=== PATIENT | male | born 1955 | race Caucasian/White ===

== ENCOUNTER 2018-11-15 11:57 | Inpatient (IN) | payer OTHER ==
[2018-11-15 13:08] LABS: #Lymphocytes 0.7 thou/uL (1.20-3.40); #Monocytes 0.3 thou/uL (0.11-0.59); #Neutrophils 11.1 thou/uL (1.40-6.50); %Basophils 0.1 % (0.0-1.0); %Eosinophils 0.3 % (0.0-10.0); %Lymphocytes 5.4 % (21.0-51.0); %Monocytes 2.4 % (0.0-10.0); %Neutrophils 91.9 % (42.0-75.0); Hemoglobin 18.4 g/dL (14.0-18.0); Mean Corpuscular HGB CONC 33.4 g/dL (32.0-36.0); Mean Corpuscular Hemoglobin 33.5 pg (27.0-31.0); Mean Platelet Volume 7.1 fL (7.4-10.4); Platelet Count 320 thou/uL (130-400); RBC Distribution Width 12.1 % (11.5-14.5); Red Blood Cell (RBC) Count 5.47 mill/uL (4.70-6.10); White Blood Cell (WBC) Count 12.1 thou/uL (4.8-10.8)
[2018-11-15] MEDS ORDERED: Ondansetron ODT 4 MG TAB ONE (13:21)
[2018-11-15 13:34] LABS: ALT (SGPT) 51 U/L (8-55); AST (SGOT) 41 U/L (5-34); Albumin 4.4 g/dL (3.4-4.8); Alkaline Phosphatase 42 U/L (40-150); Anion Gap 22 mmol/L (10-20); BUN (Urea Nitrogen) 23 mg/dL (8.4-25.7); Bilirubin, Total 0.8 mg/dL (0.2-1.2); CK (CPK) 106 U/L (30-200); Calc. Creatinine Clearance 0 mL/min (70-130); Calcium 10.1 mg/dL (7.8-10.44); Carbon Dioxide 15 mmol/L (23-31); Chloride 104 mmol/L (98-107); Estimated GFR-MDRD 62; Globulin 3.8 g/dL (2.4-3.5); Glucose 236 mg/dL (80-115); Lipase 151 U/L (8-78); Potassium 4.6 mmol/L (3.5-5.1); Protein, Total 8.2 g/dL (5.8-8.1); Sodium 136 mmol/L (136-145)
[2018-11-15] MEDS ORDERED: Acetaminophen 500 MG TAB ONE (14:15)
[2018-11-15] MEDS ORDERED: Meclizine HCl 25 MG TAB ONE (14:16)
--- NOTE | 2018-11-15 14:37 | RAD ---
PORTABLE CHEST 1 VIEW: Date: 11/15/18 Time: 1318 hours HISTORY: Chest pain. FINDINGS: There is elevation of the right hemidiaphragm. The heart size is normal. No focal areas of consolidat ion, pneumothoraces, or pleural effusions are seen. IMPRESSION: No radiographic evidence of acute cardiopulmonary process. POS: [facility]
[2018-11-15] MEDS ORDERED: Ondansetron PF 4 MG/2 ML Vial ONE (16:49)
--- NOTE | 2018-11-15 19:33 | PDOC.FPRHP ---
- History of Present Illness Chief Complaint: feeling bad History of Present Illness: 63 yo M with HTN and DM2 comes to ED for "feeling bad." Around 7 am was feeling dizzy with facial congestion.Then had 2 diarrheal episodes and 3 emesis episodes. Dizzy described as lightheaded with no room spinning. No Hx of vertigo. Pt is DM2 so checked his blood sugar at that time which was in 150s, usually in 130s. Unable to check BP since cuff wasn't working. In regards to diarrhea and emesis- no blood. No recent travel, weird foods or recent sick contacts. Got flu shot this year. Denies chest pain, SOB, headache, acute vision changes or focal weakness. In the ED pt has SBP >200s. He has been taking lisinopril and amlodipine daily for his BP. Was given 15mg of labetalol total with BPs still remaining above > 190s. Was started on a nicardepine drip to better control. ED Course: 10 labetalol - Allergies/Adverse Reactions Allergies Allergy/AdvReac Type Severity Reaction Status Date / Time tetracaine Allergy Verified 11/16/18 00:23 Tetracyclines Allergy Verified 11/16/18 00:23 - Home Medications Medication Instructions Recorded Confirmed Type Amlodipine [Norvasc] 5 mg PO DAILY 11/16/18 11/16/18 History Atorvastatin Calcium [Lipitor] 10 mg PO DAILY 11/16/18 11/16/18 History Dapagliflozin Propanediol [Farxiga] 10 mg PO DAILY 11/16/18 11/16/[address] [Voltaren] 50 mg PO BID 11/16/18 11/16/18 History Fluticasone Propionate [Flonase 1 spray EA NARE DAILY 11/16/18 11/16/18 History Nasal [place]] Folic Acid 1 mg PO DAILY 11/16/18 11/16/18 History Glimepiride [Amaryl] 8 mg PO DAILY 11/16/18 11/16/18 History Lisinopril 10 mg PO DAILY 11/16/18 11/16/18 History Testosterone Cypionate 200 mg IM Q14D 11/16/18 11/16/18 History [Depo-Testosterone] metFORMIN [Glucophage] 1,000 mg PO BID-WM 11/16/18 11/16/18 History - History PMHx: Htn, DM2, hx of squamous cell CA of tongue, psoriasis PSHx: Appenectomy, lymphadnectomy of neck for SCC, R shoulder surgery for impingement FHx: dementia, parkinsons Social: denies, t/e/d - Review of Systems General: denies: fever/chills, weight/appetite/sleep changes Eyes: denies: eye pain, vision changes ENT: denies: nasal congestion, rhinorrhea Respiratory: denies: cough, congestion, shortness of breath Cardiovascular: denies: chest pain, palpitation, edema Gastrointestinal: reports: nausea, vomiting, diarrhea. denies: abdominal pain, GI bleeding Genitourinary: denies: incontinence, dysuria Skin: denies: rashes, lesions, jaundice Musculoskeletal: denies: pain, tenderness, stiffness Neurological: denies: syncope, seizure Psychological: denies: anxiety, depression - Vital signs BP: [] HR: [] RR: [] Tmax: [] Pox: []% on [] Wt: [] - Physical Exam Constitutional: NAD, awake, alert and oriented, well developed HEENT: normocephalic and atraumatic, PERRLA, EOMI, conjunctiva clear -HEENT: tongue deviation to right (normal per patient s/p surgical removal of CA) dry mucosal membranes Neck: supple, FROM, trachea midline -Neck: right neck slightly swollen Heart: RRR, normal S1/S2, no murmurs/rubs/gallops Lungs: CTAB, no respiratory distress, good air movement Abdomen: soft, non-tender, bowel sounds present, no masses/distention Musculoskeletal: normal structure, normal tone, ROM grossly normal Neurological: no focal deficit, CN II-XII intact, normal sensation Skin: no rash/lesions, good turgor Heme/Lymphatic: no unusual bruising or bleeding, no purpura Psychiatric: normal mood and affect, good judgment and insight Additional comment: corinna ceballos: negative FMR H&P: Results - Labs Result Diagrams: 11/16/18 04:29 11/16/18 04:28 Lab results: WBC 12.1 thou/uL (4.8-10.8) H 11/15/18 12:58 Hgb 18.4 g/dL (14.0-18.0) H 11/15/18 12:58 Hct 55.0 % (42.0-52.0) H 11/15/18 12:58 MCV 100.0 fL (78.0-98.0) H 11/15/18 12:58 Plt Count 320 thou/uL (130-400) 11/15/18 12:58 Neutrophils % 91.9 % (42.0-75.0) H 11/15/18 12:58 Sodium 136 mmol/L (136-145) 11/15/18 12:58 Potassium 4.6 mmol/L (3.5-5.1) 11/15/18 12:58 Chloride 104 mmol/L (98-107) 11/15/18 12:58 Carbon Dioxide 15 mmol/L (23-31) L 11/15/18 12:58 BUN 23 mg/dL (8.4-25.7) 11/15/18 12:58 Creatinine 1.19 mg/dL (0.7-1.3) 11/15/18 12:58 Glucose 236 mg/dL (80-115) H 11/15/18 12:58 Calcium 10.1 mg/dL (7.8-10.44) 11/15/18 12:58 Total Bilirubin 0.8 mg/dL (0.2-1.2) 11/15/18 12:58 AST 41 U/L (5-34) H 11/15/18 12:58 ALT 51 U/L (8-55) 11/15/18 12:58 Alkaline Phosphatase 42 U/L (40-150) 11/15/18 12:58 Creatine Kinase 106 U/L (30-200) 11/15/18 12:58 B-Natriuretic Peptide 11.0 pg/mL (0-100) 11/15/18 12:58 Serum Total Protein 8.2 g/dL (5.8-8.1) H 11/15/18 12:58 Albumin 4.4 g/dL (3.4-4.8) 11/15/18 12:58 Lipase 151 U/L (8-78) H 11/15/18 12:58 - EKG Interpretation EKG: sinus tachycardia, LVH, possible left atrial enlargement - Radiology Interpretation Chest x-ray Status: image reviewed by me, report reviewed by me Additional comment: no acute cardiopulmonary processes FMR H&P: A/P - Problem List (1) Hypertensive encephalopathy Current Visit: Yes Status: Acute Code(s): I67.4 - HYPERTENSIVE ENCEPHALOPATHY (2) High anion gap metabolic acidosis Current Visit: Yes Status: Acute Code(s): E87.2 - ACIDOSIS (3) Dehydration Current Visit: Yes Status: Acute Code(s): E86.0 - DEHYDRATION (4) Chronic hypertension Current Visit: Yes Status: Chronic Code(s): I10 - ESSENTIAL (PRIMARY) HYPERTENSION (5) Diabetes type 2, uncontrolled Current Visit: Yes Status: Chronic Code(s): E11.65 - TYPE 2 DIABETES MELLITUS WITH HYPERGLYCEMIA (6) Squamous cell cancer of buccal mucosa Current Visit: Yes Status: Chronic Code(s): C06.0 - MALIGNANT NEOPLASM OF CHEEK MUCOSA (7) Psoriasis Current Visit: Yes Status: Chronic Code(s): L40.9 - PSORIASIS, UNSPECIFIED - Plan 63 yo M with DM2 and HTN admitted for hypertensive encephalopathy Hypertensive urgency -BP >200/>100s, s/p 15mg labetalol in ED -labs show no signs of end organ damage: trops neg. x3, normal BNP, A&O x3 -however due to nausea/emesis can consider HTN encephalopathy as part of dx. However, nausea/emesis could also be 2/2 to GE -EKG with LVH, it's likely that pt patient's acute presentation is a manifestation of chronic uncontrolled HTN. Hemorrhagic/ischemic stroke less likely in setting of normal neuro exam. -on nicardepine drip at 3mcg/hr, admit to CCU for goal SBP <160 -work to eventual transition of PO meds once BPs stable chronic HTN -home amlodipine & lisinopril, resume po meds once off nicardepine drip & BPs stable -may need inc in home amlodipine dose AG met acidosis -likely 2/2 volume depletion, clinically dry on exam -lactic acid pending -fluids, repeat BMP in AM Dizziness -corinna hallpike neg -dizziness likely 2/2 to elevated BPs -meclizine PRN Dehydration, mild -Tachycardic, s/p 1L in ED -will give 1L bolus, start on mIVF -likely 2/2 dec po intake and emesis -AM BMP Diarrhea/emesis -possible gastroenteritis -will rehydrate -if no improvement, consider stool studies Elevated H/H, Leukocytosis -likely hemoconcentrated -no bands, afebrile -will check procal -AM CBC after fluids ROXANA vs CKD -gfr 62, Cr 1.19-no hx of baseline -will continue fluids -AM BMP -hold home metformin for now DM2 -A1c 8.3 -sliding scale Squamous cell CA of tongue s/p surgery -MD aware Psoriasis -contine home meds dvt ppx: lovenox gi ppx: protonix Discussed with Dr. Trinidad FMR H&P: Upper Level - Pertinent history 63 y/o M with HTN, DM presenting with dizziness/vomiting. Started this AM and pt describes sx as not feeling well and lightheaded. Worse with brisk head movements. Has not seen PCP in several months nor has he taken his BP at home. Vomited and diarrhea x3 today and not tolerating PO well. Does state BG has been higher than it usually is. Also endorses LBP for a year that has worsened recently. States he has been "popping" Tylenol. - Plan Date/Time: 11/15/18 193 I, Wellington Cullen, have evaluated this patient and agree with findings/plan as outlined by international project manager resident. Pertinent changes/additions are listed here. # Hypertensive Emergency -232 SBP upon presentation and now has improved to 190' s with Labetalol, but 2nd dose did not help. Will start Cardene drip. # Gastroenteritis - Unsure of why he started vomiting and had diarrhea today. Will rehydrate him and monitor symptoms. Consider stool studies of no improvement. Abdominal exam benign. # AG Metabolic Acidosis - Likely 2/2 diarrhea, but possibly elevated ketoacids vs Acetaminophen ingestion. Order b-hydroxy. # DMT2 - SSI, regular accuchecks # Elevated Lipase - Likely 2/2 hypovolemia. Will trend. Abdominal exam benign. Addendum - Attending - Attending Attestation Date/Time: 11/16/18 8023 I personally evaluated the patient and discussed the management with Dr. Ragland at time of admission last night. I agree with the History, Examination, Assessment and Plan documented above with any addition or exceptions noted below.
[2018-11-15 22:07] LABS: Hemoglobin A1c 8.3 % (4.0-6.0)
[2018-11-15] MEDS ORDERED: niCARdipine 20MG In NaCl 20 MG/200 ML BAG ONE (22:24)
[2018-11-16] MEDS ORDERED: Dextrose 5% in Water 1,000 ML IV PRN (00:22)
[2018-11-16] MEDS ORDERED: Ondansetron ODT 4 MG TAB PO PRN (00:22)
[2018-11-16] MEDS ORDERED: Dextrose 50% Abboject 50 ML SYRINGE SLOW IVP PRN (00:22)
[2018-11-16] MEDS ORDERED: Lactated Ringer's 1,000 ML IV SCH (00:22)
[2018-11-16] MEDS: Lactated Ringer's 1,000 ML IV SCH ×4 (00:29→17:51)
[2018-11-16] MEDS ORDERED: Meclizine HCl 25 MG TAB PO PRN (00:42)
[2018-11-16 00:43] VITALS: BMI 26.4
[2018-11-16] MEDS: Acetaminophen 325 MG TAB PO PRN ×5 (01:10→20:30)
[2018-11-16 04:55] LABS: #Basophils 0.1 thou/uL (0.0-0.2); #Eosinphils 0.1 thou/uL (0.0-0.7); #Lymphocytes 1.3 thou/uL (1.20-3.40); #Monocytes 0.6 thou/uL (0.11-0.59); #Neutrophils 6.9 thou/uL (1.40-6.50); %Basophils 0.7 % (0.0-1.0); %Eosinophils 1.1 % (0.0-10.0); %Lymphocytes 14.2 % (21.0-51.0); %Monocytes 6.4 % (0.0-10.0); %Neutrophils 77.6 % (42.0-75.0); Hemoglobin 16.2 g/dL (14.0-18.0); Mean Corpuscular HGB CONC 33.1 g/dL (32.0-36.0); Mean Platelet Volume 6.8 fL (7.4-10.4); Platelet Count 295 thou/uL (130-400); RBC Distribution Width 12.3 % (11.5-14.5); Red Blood Cell (RBC) Count 4.77 mill/uL (4.70-6.10); White Blood Cell (WBC) Count 8.9 thou/uL (4.8-10.8)
[2018-11-16 05:10] LABS: Lactic Acid 1.3 mmol/L (0.5-2.2)
[2018-11-16 05:14] LABS: ALT (SGPT) 32 U/L (8-55); AST (SGOT) 20 U/L (5-34); Albumin 3.7 g/dL (3.4-4.8); Alkaline Phosphatase 34 U/L (40-150); Anion Gap 15 mmol/L (10-20); BUN (Urea Nitrogen) 27 mg/dL (8.4-25.7); Bilirubin, Total 0.7 mg/dL (0.2-1.2); Calc. Creatinine Clearance 75 mL/min (70-130); Calcium 9.3 mg/dL (7.8-10.44); Carbon Dioxide 20 mmol/L (23-31); Chloride 107 mmol/L (98-107); Estimated GFR-MDRD 65; Globulin 2.8 g/dL (2.4-3.5); Glucose 176 mg/dL (80-115); Potassium 3.7 mmol/L (3.5-5.1); Protein, Total 6.5 g/dL (5.8-8.1); Sodium 138 mmol/L (136-145)
--- NOTE | 2018-11-16 07:10 | PDOC.FM ---
- Subjective Subjective: Seen at bedside this morning in no acute distress. Patient was admitted yesterday for hypertensive urgency and placed on cardene drip. This morning patient denies continued dizziness, n/v, or headache. There are no new complaints. - Objective MAR Reviewed: Yes Vital Signs & Weight: Vital Signs (12 hours) Temp Pulse Ox 11/16/18 00:56 96 11/16/18 00:10 97.9 F Weight Weight 81.1 kg Most Recent Monitor Data Heart Rate from ECG 86 NIBP 144/82 NIBP BP-Mean 102 Respiration from ECG 16 SpO2 95 I&O: 11/15/18 11/16/18 11/17/18 06:59 06:59 06:59 Intake Total 1802 Output Total 800 Balance 1002 Result Diagrams: 11/16/18 04:29 11/16/18 04:28 Phys Exam - Physical Examination Constitutional: NAD HEENT: moist MMs Neck: full ROM Respiratory: clear to auscultation bilateral Cardiovascular: RRR 2/6 systolic murmumr left sternal border. No radiation Gastrointestinal: soft, non-tender, no distention Musculoskeletal: no edema Neurological: moves all 4 limbs Psychiatric: normal affect, A&O x 3 Skin: no rash Dx/Plan (1) Dehydration Code(s): E86.0 - DEHYDRATION Status: Acute (2) High anion gap metabolic acidosis Code(s): E87.2 - ACIDOSIS Status: Acute (3) Hypertensive encephalopathy Code(s): I67.4 - HYPERTENSIVE ENCEPHALOPATHY Status: Acute (4) Chronic hypertension Code(s): I10 - ESSENTIAL (PRIMARY) HYPERTENSION Status: Chronic (5) Diabetes type 2, uncontrolled Code(s): E11.65 - TYPE 2 DIABETES MELLITUS WITH HYPERGLYCEMIA Status: Chronic - Plan Plan: 1. Hypertensive urgency with encephalopathy - symptoms have resolved - Controlled on cardene drip. Will work to taper off today and start home meds. - Will plan to increase home MARCIAL and likely start additional class 2. Anion gap metabolic acidosis - still acidodic, but gap is closed - likely realted to early DKA vs low volume status secondary to vomiting - continue to monitor. 3. Dehydration - fluid status has improved, continue IVF today. Monitor BMP in am 4. Chronic HTN - as above 5. DM2 - patient did have a mild DKA picture when he came in, this is likely due to gastroenteritis and low volume status - Will restart home meds - SSI as needed - accucheck ACHS Dispo: Patient is stable and improving, will hopefully be able to move off of drip today. Addendum - Attending - Attending Attestation Date/Time: 11/16/18 1003 I personally evaluated the patient and discussed the management with Dr. Soto I agree with the History, Examination, Assessment and Plan documented above with any addition or exceptions noted below - Patient denies any complaints. Afebrile BP 150-160/70-80 A/P: 1) Hypertensive urgency- BP 150-160/70-80s overnight until this morning and elevated again to 190s/100s. Home medications restarted and will add HCTZ. Continue to monitor closely. 2) DM- monitor accuchecks and restart home meds.
[2018-11-16] MEDS ORDERED: metFORMIN 500 MG TAB PO SCH (08:00)
[2018-11-16] MEDS: Pantoprazole 40 MG GRANULES PACKET PO SCH (08:33)
[2018-11-16] MEDS: Atorvastatin Calcium 10 MG TAB PO SCH (08:33)
[2018-11-16] MEDS: Enoxaparin Sodium 40 MG/0.4 ML SYRINGE SC SCH (08:33)
[2018-11-16] MEDS ORDERED: Hydrochlorothiazide 25 MG TAB PO SCH (09:00)
[2018-11-16] MEDS ORDERED: Lisinopril 10 MG TAB PO SCH ×2 (09:00→09:06)
[2018-11-16] MEDS ORDERED: Non-Formulary Item 1 EACH (Dapagliflozin Propanediol [Farxiga] 10 MG) PO SCH (09:00)
[2018-11-16] MEDS: Glimepiride 4 MG TAB PO SCH (09:12)
[2018-11-16] MEDS: Amlodipine 5 MG TAB PO SCH (09:13)
[2018-11-16] MEDS: Folic Acid 1 MG TAB PO SCH (09:13)
[2018-11-16] MEDS: Fluticasone Propionate Nasal Spray 16 gm Bottle NASAL SCH (09:15)
[2018-11-16] MEDS: HumaLOG 300 UNITS/3 ML VIAL SC PRN ×2 (11:13→20:49)
[2018-11-16] MEDS ORDERED: Lisinopril 20 MG TAB PO SCH (11:15)
[2018-11-16 11:49] LABS: Bilirubin Negative (Negative); Blood, Urine Trace (Negative); Clarity CLEAR (Clear); Glucose, Urine (Dipstick) >=1000 mg/dL (Negative); Leukocyte Negative (Negative); Nitrite Negative (Negative); Protein, Urine (Dipstick) 100 mg/dL (Neg-Trace); Specific Gravity, Urine 1.017 (1.002-1.036); Urobilinogen 0.2 mg/dL (0.2-1.0)
[2018-11-16 11:52] LABS: Bacteria/HPF None Seen HPF (None Seen); Hyaline Casts/LPF 0-3 HYALINE CAST LPF (0-3 Hyaline); RBC/HPF 0-3 HPF (0-3); Squamous Epithelial None Seen HPF (0-3); WBC/HPF 0-3 HPF (0-3)
[2018-11-16 11:55] LABS: Urine Culture Reflex No No
[2018-11-16] MEDS: Diclofenac Sodium 50 MG DR TAB PO SCH ×2 (12:15→20:36)
[2018-11-16] MEDS: Labetalol HCl 100 MG/20 ML VIAL SLOW IVP PRN ×2 (15:54→20:32)
[2018-11-16 18:17] LABS: Amphetamine Not Detected (NotDetected); Barbiturates Screen Not Detected (NotDetected); Benzodiazepine Screen Not Detected (NotDetected); Cocaine Metabolite Screen Not Detected (NotDetected); Medtox Control Line Valid? VALID (VALID); Medtox Reader # READER 4; Methadone Not Detected (NotDetected); Methamphetamine Not Detected (NotDetected); Opiate Screen Not Detected (NotDetected); Oxycodone Screen Not Detected (NotDetected); Phencyclidine (PCP) Not Detected (NotDetected); THC/Cannabinoid Screen Not Detected (NotDetected); Tricyclic Screen Not Detected (NotDetected)
--- NOTE | 2018-11-17 00:09 | CON ---
DATE OF CONSULTATION: 11/16/2018 HISTORY OF PRESENT ILLNESS: Biju Lutz is a pleasant 63-year-old male. He says he has had a stomach illness that led to nausea and vomiting. He thinks he threw up his medicines, but he does not really remember yesterday and cannot be certain whether he took his blood pressure medicines or not. He is admitted hypertensive. He was started on Cardene and has eventually been weaned off Cardene. He remains moderately hypertensive. PAST MEDICAL HISTORY: Remarkable for 1. Hypertension. He says he is compliant with medications. 2. Diabetes. 3. History of tongue cancer. 4. History of psoriasis. 5. History of an appendectomy. 6. History of lymph node resection of his tongue cancer. 7. History of surgery on his right shoulder for nerve impingement. FAMILY HISTORY: Negative for lung disease in early age. SOCIAL HISTORY: He is a nonsmoker, nondrinker, nondrug user. MEDICATIONS: Prior to admission; 1. He is on testosterone. 2. Metformin. 3. Norvasc. 4. Lipitor. 5. Farxiga. 6. Voltaren. 7. Flonase. 8. Amaryl. 9. Lisinopril. REVIEW OF SYSTEMS: A 10-point review of systems is otherwise negative. He no longer has nausea or vomiting. He denies abdominal pain. PHYSICAL EXAMINATION: VITAL SIGNS: Blood pressures, he has had diastolics around 100 all day. Last blood pressure is 163/121, he was 170/100 earlier. Heart rates in the 90s, respiratory rates in the teens. HEAD AND NECK: Unremarkable. LUNGS: Clear. HEART: Regular rhythm. S1 and S2 are normal. ABDOMEN: Soft and nontender. EXTREMITIES: Without clubbing, cyanosis, or edema. IMPRESSION: Hypertension, not adequately controlled. If he remains with high diastolics, he should be started back on his Cardene. I will be happy to follow while he is in the Critical Care Unit. From a pulmonary standpoint, he is stable at this time. TIME SPENT: This is a 70-minute consult, 50% of the time was spent on the unit coordinating care. Job ID: [id number] [facility] HEALTHCheikh
[2018-11-17] MEDS: Lactated Ringer's 1,000 ML IV SCH ×3 (02:26→15:46)
[2018-11-17] MEDS: Acetaminophen 325 MG TAB PO PRN ×2 (03:33→08:43)
[2018-11-17] MEDS ORDERED: Hydrochlorothiazide 25 MG TAB PO SCH ×2 (07:00→09:00)
--- NOTE | 2018-11-17 07:02 | PDOC.FM ---
- Subjective Subjective: Patient seen at bedside this morning in no acute distress. Yesterday, patient was successfully weaned from cardene, however did require a 1 time dose of labetalol last night. No new complaints. Denies headache, n/v, chest pain. - Objective MAR Reviewed: Yes Vital Signs & Weight: Vital Signs (12 hours) Temp Pulse BP Pulse Ox 11/17/18 04:00 97.8 F 11/17/18 00:00 97.6 F 11/16/18 20:32 80 181/108 H 11/16/18 20:00 97.6 F 98 Weight Weight 81.1 kg Most Recent Monitor Data Heart Rate from ECG 73 NIBP 143/77 NIBP BP-Mean 99 Respiration from ECG 16 SpO2 95 I&O: 11/15/18 11/16/18 11/17/18 06:59 06:59 06:59 Intake Total 1802 1926 Output Total 800 6200 Balance 1002 -4274 Result Diagrams: 11/16/18 04:29 11/17/18 07:32 Phys Exam - Physical Examination Constitutional: NAD HEENT: sclera anicteric Neck: no JVD Respiratory: clear to auscultation bilateral Cardiovascular: RRR 2/6 systolic murmur, unchanged Gastrointestinal: soft, non-tender, no distention Musculoskeletal: no edema Neurological: non-focal, moves all 4 limbs Psychiatric: A&O x 3 Skin: no rash Dx/Plan (1) Dehydration Code(s): E86.0 - DEHYDRATION Status: Acute (2) High anion gap metabolic acidosis Code(s): E87.2 - ACIDOSIS Status: Acute (3) Hypertensive encephalopathy Code(s): I67.4 - HYPERTENSIVE ENCEPHALOPATHY Status: Acute (4) Chronic hypertension Code(s): I10 - ESSENTIAL (PRIMARY) HYPERTENSION Status: Chronic (5) Diabetes type 2, uncontrolled Code(s): E11.65 - TYPE 2 DIABETES MELLITUS WITH HYPERGLYCEMIA Status: Chronic (6) (HFpEF) heart failure with preserved ejection fraction Code(s): I50.30 - UNSPECIFIED DIASTOLIC (CONGESTIVE) HEART FAILURE Status: Acute - Plan Plan: 1. Hypertensive urgency with encephalopathy, resovled - Successfully weaned from cardene, however did still require 1 dose of IV antihypertensive. Will increase HCTZ today and monitor BP. If controlled, will consider dc this afternoon. - Will need short follow up with Dr Webster 2. Anion gap metabolic acidosis - labs pending, would expect resolution as volume status has improved and glucose has improved, though not controlled - continue to monitor. 3. Dehydration, resolved 4. Chronic HTN - as above 5. DM2 - A1c is 8.3 which is c/w glucose here - Will restart home meds, however I would expect change of management in outpatient setting in order to optimize control - SSI as needed - accucheck ACHS 6. HFpEF - per result for echo. This is asymptomatic Dispo: Patient is stable and improving, possible dc today pending blood pressure control. Addendum - Attending - Attending Attestation Date/Time: 11/17/18 5786 I personally evaluated the patient and discussed the management with Dr. Soto I agree with the History, Examination, Assessment and Plan documented above with any addition or exceptions noted below - Patient without complaints. Tolerating diet. No further N/V/D. Afebrile BP 130-150/70-80s overnight. A/P: 1 ) Hypertensive urgency- off cardene since yesterday afternoon; most BP <160/100 till this morning. Continue current meds. May need to add beta rachel. 2) DM- continue accuchecks and current meds.
[2018-11-17] MEDS: Pantoprazole 40 MG GRANULES PACKET PO SCH (07:09)
[2018-11-17] MEDS: Amlodipine 5 MG TAB PO SCH ×2 (07:09→13:42)
[2018-11-17] MEDS: Glimepiride 4 MG TAB PO SCH (07:09)
[2018-11-17] MEDS: Folic Acid 1 MG TAB PO SCH (07:09)
[2018-11-17] MEDS: Atorvastatin Calcium 10 MG TAB PO SCH (07:10)
[2018-11-17 08:06] LABS: Anion Gap 16 mmol/L (10-20); BUN (Urea Nitrogen) 16 mg/dL (8.4-25.7); Calc. Creatinine Clearance 81 mL/min (70-130); Calcium 9.7 mg/dL (7.8-10.44); Carbon Dioxide 22 mmol/L (23-31); Chloride 106 mmol/L (98-107); Estimated GFR-MDRD 70; Glucose 131 mg/dL (80-115); Potassium 3.9 mmol/L (3.5-5.1); Sodium 140 mmol/L (136-145)
[2018-11-17] MEDS ORDERED: Lisinopril 20 MG TAB PO SCH (09:00)
[2018-11-17] MEDS: Diclofenac Sodium 50 MG DR TAB PO SCH (10:57)
[2018-11-17] MEDS: Enoxaparin Sodium 40 MG/0.4 ML SYRINGE SC SCH (10:58)
[2018-11-17] MEDS: Labetalol HCl 100 MG/20 ML VIAL SLOW IVP PRN (11:10)
[2018-11-17] MEDS: Fluticasone Propionate Nasal Spray 16 gm Bottle NASAL SCH (11:23)
[2018-11-17] MEDS: HumaLOG 300 UNITS/3 ML VIAL SC PRN (12:06)
[2018-11-17 13:06] VITALS: TEMP 97
[2018-11-17] MEDS ORDERED: Amlodipine 5 MG TAB PO SCH (13:30)
[2018-11-17 13:42] VITALS: BP 181/113
[2018-11-17] MEDS ORDERED: Carvedilol 6.25 MG TAB PO SCH (17:00)
--- NOTE | 2018-11-17 20:55 | PRG ---
DATE OF SERVICE: 11/17/2018 SUBJECTIVE: Biju Lutz still have an intermittent mild to moderate elevations in his blood pressure. He feels back to normal. He wants to go home. 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 OBJECTIVE: LUNGS: Clear. HEART: Regular rhythm. ABDOMEN: Soft. LABORATORY DATA: He had no new lab of significance. IMPRESSION: Hypertension, poorly controlled? secondary to inability to absorb his medications associated with viral illness/gastroenteritis? He seems to be reliable. I have asked him to keep a diary of his blood pressures twice a day. I added Norvasc 5 mg at lunch time for an additional dose and increased his Norvasc 10 mg a day. He may benefit with twice daily MARCIAL inhibitor if his diary shows that his blood pressures remain elevated. His renal function is normal. He can follow up with Dr. Le next week and present his diary of blood pressures for adjustment of his medicines. I felt it would be reasonable to discharge him home out of the Critical Care Unit. Job ID: [id number]
[2018-11-18] MEDS ORDERED: Amlodipine 10 MG TAB PO SCH (09:00)
--- NOTE | 2018-11-18 09:51 | DIS ---
DATE OF ADMISSION: 11/15/2018 DATE OF DISCHARGE: 11/17/2018 RESIDENT: Biju Soto DO ADMITTING ATTENDING: Milad Trinidad M.D. CONSULTS: Pulmonary Critical Care, Alessandro Flowers M.D. PROCEDURES: Chest x-ray on 11/15, finding of no radiographic evidence of acute cardiopulmonary process. Echo on 11/16 with finding of LVEF at 55% to 60%. Mild concentric left ventricular hypertrophy. PA flow reversal suggestive of diastolic dysfunction. Mild mitral regurgitation. Mild tricuspid regurgitation. ADMITTING DIAGNOSES: 1. Hypertensive emergency. 2. Anion gap metabolic acidosis. 3. Dehydration. SECONDARY DIAGNOSES: 1. Chronic hypertension. 2. Type 2 diabetes. 3. Psoriasis. DISCHARGE MEDICATIONS: 1. Depo-Testosterone 200 mg IM q.14 days. 2. Farxiga 10 mg p.o. daily. 3. Voltaren 50 mg p.o. b.i.d. 4. Amaryl 8 mg p.o. b.i.d. p.o. daily. 5. Metformin 1000 mg p.o. b.i.d. 6. Lipitor 10 mg p.o. daily. 7. Folic acid 1 mg p.o. daily. 8. Lisinopril 20 mg p.o. daily. 9. Flonase 1 spray each nares daily. 10. Hydrochlorothiazide 25 mg p.o. daily. 11. Norvasc 10 mg p.o. daily. DISCONTINUED MEDICATIONS: Lisinopril 10 mg p.o. daily. HOSPITAL COURSE: A 63-year-old male who was admitted to the emergency room after found to be encephalopathic secondary to emergent hypertension. Blood pressure is greater than 200/100 in the emergency room. The patient was started on a Cardene drip and monitored in the ICU. Blood pressure quickly responded to IV Cardene and he was successfully weaned off IV blood pressure control within 18 hours of admission. The patient was restarted on p.o. medications and with an increased dose additionally, hydrochlorothiazide was added to his oral medication for hypertension management. On the day of discharge, blood pressure was reasonably well controlled. However, it was recommended that he follow up with his primary care provider, Dr. Abhilash Webster in order to monitor control on his new blood pressure regimen as it may be necessary for him to get increased dosing or add an additional agent . Additionally on admission, the patient was found to be hyperglycemic and acidotic. This was consistent with the DKA. However, the patient did not have an anion gap. It is also possible this was related to his Farxiga. The patient was discharged on medication with the exception of Farxiga and started on local diet. His blood sugar which was reasonably controlled while admitted, however, due to the fact high. It was recommended to the patient that he follow blood sugar his PCP in order to assess the necessity of Farxiga or possibly adding a new class of antihyperglycemic for diabetes control. DISCHARGE INSTRUCTIONS: Location: Home. Diet: Heart healthy, low carb. Followup: Follow up with PCP, . Job ID: [id number]
== END 2018-11-17 17:27 | disposition home or self-care (01) | DRG 304 ==
LOC: ERS 11:57 → ERHOLD 17:45 → OBSVTOIN 17:45 → CCU 11-16 00:20
PROVIDERS: ADMIT Family Medicine; ATTEND Family Medicine
DX: I16.0 Hypertensive urgency (principal); I50.31 Acute diastolic (congestive) heart failure; I67.4 Hypertensive encephalopathy; E87.2 Acidosis; E86.0 Dehydration; E11.65 Type 2 diabetes mellitus with hyperglycemia; C06.0 Malignant neoplasm of cheek mucosa; I11.0 Hypertensive heart disease with heart failure; L40.9 Psoriasis, unspecified; Z88.1 Allergy status to other antibiotic agents; Z85.828 Personal history of other malignant neoplasm of skin; Z90.49 Acquired absence of other specified parts of digestive tract; Z98.890 Other specified postprocedural states
CPT/HCPCS: 36415; 36416; 71045; 80048; 80053; 80306; 81001; 82010; 82550; 83036; 83605; 83690; 83880; 84145; 84443; 84484; 85025; 93005; 93306; J1650; J2405; J3490; J7050; Q0162

== ENCOUNTER 2020-05-22 23:28 | Emergency (ER) | payer MEDICARE, OTHER ==
[2020-05-23 00:01] LABS: #Eosinphils 0.2 thou/uL (0.0-0.7); #Lymphocytes 1.3 thou/uL (1.20-3.40); #Monocytes 0.7 thou/uL (0.11-0.59); #Neutrophils 10.1 thou/uL (1.40-6.50); %Basophils 0.2 % (0.0-1.0); %Eosinophils 1.8 % (0.0-10.0); %Lymphocytes 10.4 % (21.0-51.0); %Monocytes 5.8 % (0.0-10.0); %Neutrophils 81.7 % (42.0-75.0); Hemoglobin 18.5 g/dL (14.0-18.0); Mean Corpuscular HGB CONC 34.3 g/dL (32.0-36.0); Mean Platelet Volume 7.2 fL (7.4-10.4); Platelet Count 281 thou/uL (130-400); RBC Distribution Width 12.9 % (11.5-14.5); Red Blood Cell (RBC) Count 5.28 mill/uL (4.70-6.10); White Blood Cell (WBC) Count 12.4 thou/uL (4.8-10.8)
--- NOTE | 2020-05-23 00:02 | RAD ---
RADIOGRAPH CHEST 1 VIEW: DATE: 05/22/2020 HISTORY: 65-year-old male with hypertension FINDINGS: The visualized lung merino are clear. The cardiomediastinal silhouette and hilar shadows are normal. The lateral costophrenic angles are sharp. There is no pneumothorax. IMPRESSION: No evidence of acute cardiopulmonary disease
[2020-05-23 00:22] LABS: Anion Gap 20 mmol/L (10-20); BUN (Urea Nitrogen) 22 mg/dL (8.4-25.7); Calc. Creatinine Clearance 0 mL/min (70-130); Carbon Dioxide 21 mmol/L (23-31); Chloride 104 mmol/L (98-107); Estimated GFR-MDRD 57; Potassium 4.5 mmol/L (3.5-5.1); Sodium 140 mmol/L (136-145)
[2020-05-23 00:23] LABS: ALT (SGPT) 39 U/L (8-55); AST (SGOT) 27 U/L (5-34); Albumin 4.6 g/dL (3.4-4.8); Alkaline Phosphatase 40 U/L (40-110); Bilirubin, Total 0.6 mg/dL (0.2-1.2); Globulin 3.7 g/dL (2.4-3.5); Glucose 233 mg/dL (80-115); Protein, Total 8.3 g/dL (5.8-8.1)
[2020-05-23] MEDS ORDERED: Morphine 4 MG/ML VIAL ONE (00:30)
[2020-05-23] MEDS ORDERED: Ondansetron PF 4 MG/2 ML Vial ONE (00:30)
--- NOTE | 2020-05-26 15:25 | EKG ---
Test Reason : Blood Pressure : / mmHG Vent. Rate : 103 BPM Atrial Rate : 103 BPM P-R Int : 126 ms QRS Dur : 084 ms QT Int : 338 ms P-R-T Axes : 078 026 056 degrees QTc Int : 442 ms Sinus tachycardia with occasional Premature ventricular complexes Otherwise normal ECG Confirmed by ASHLEY LOVETT DO ([id number]), city editor PALLAVI MOJICA ([id number] on 05/26/2020 3:24:31 PM Referred By: Confirmed By:ASHLEY LOVETT DO
== END 2020-05-23 01:42 | disposition home or self-care (01) ==
LOC: ERS 23:28
DX: I10 Essential (primary) hypertension (principal); R07.89 Other chest pain; E11.9 Type 2 diabetes mellitus without complications; Z79.84 Long term (current) use of oral hypoglycemic drugs; Z79.899 Other long term (current) drug therapy
CPT/HCPCS: 71045; 80053; 84484; 85025; 93005; 94760; 96361; 96374; 96375; J2270; J2405

== ENCOUNTER 2020-06-04 06:22 | Outpatient (CLI) | payer MEDICARE, OTHER ==
[2020-06-04 16:14] LABS: Hemoglobin 16.9 g/dL (14.0-18.0); Mean Corpuscular HGB CONC 32.7 g/dL (32.0-36.0); Mean Corpuscular Hemoglobin 34.3 pg (27.0-31.0); Mean Platelet Volume 6.8 fL (7.4-10.4); Platelet Count 350 thou/uL (130-400); RBC Distribution Width 13.5 % (11.5-14.5); Red Blood Cell (RBC) Count 4.92 mill/uL (4.70-6.10); White Blood Cell (WBC) Count 9.7 thou/uL (4.8-10.8)
[2020-06-04 16:18] LABS: INR-International Normal Ratio 0.9; PTT 26.5 sec (22.9-36.1); Prothrombin Time 11.6 sec (12.0-14.7)
[2020-06-04 16:52] LABS: Chloride 105 mmol/L (98-107); Potassium 4.5 mmol/L (3.5-5.1); Sodium 140 mmol/L (136-145)
[2020-06-04 16:53] LABS: Calcium 9.7 mg/dL (7.8-10.44)
[2020-06-04 16:54] LABS: Glucose 220 mg/dL (80-115)
[2020-06-04 16:55] LABS: Anion Gap 21 mmol/L (10-20); Carbon Dioxide 19 mmol/L (23-31)
[2020-06-04 16:57] LABS: Calc. Creatinine Clearance 0 mL/min (70-130); Estimated GFR-MDRD 62
[2020-06-04 16:58] LABS: BUN (Urea Nitrogen) 22 mg/dL (8.4-25.7)
[2020-06-05 13:23] LABS: SARS-CoV-2 MS2 Positive; SARS-CoV-2 N Gene Negative; SARS-CoV-2 S Gene Negative; SARS-CoV-2 by NAA Not Detected (NotDetected); SARS-CoV-2 orf1ab Negative
== END 2020-06-04 06:23 | disposition home or self-care (01) ==
LOC: LABBT 06:22
PROVIDERS: ATTEND Surgery
DX: Z01.812 Encounter for preprocedural laboratory examination (principal); Z20.828 Contact with and (suspected) exposure to other viral communicable diseases; M51.16 Intervertebral disc disorders with radiculopathy, lumbar region; M48.062 Spinal stenosis, lumbar region with neurogenic claudication
CPT/HCPCS: 80048; 85027; 85610; 85730; U0003; 87635

== ENCOUNTER 2020-06-07 07:05 | Inpatient (IN) | payer MEDICARE, OTHER ==
[2020-06-06 11:32] VITALS: BMI 26.6
[2020-06-07] MEDS ORDERED: Thrombin 5000 UNITS/5 ML VIAL ONE (07:38)
[2020-06-07] MEDS ORDERED: Fentanyl 100 MCG/2 ML VIAL ONE ×5 (08:53→12:31)
[2020-06-07] MEDS ORDERED: Bisacodyl 10 MG SUPP PR PRN (09:20)
[2020-06-07] MEDS ORDERED: Milk Of Magnesia 30 ML UDCUP PO PRN (09:20)
[2020-06-07] MEDS ORDERED: diphenhydrAMINE 25 MG CAP PO PRN (09:20)
[2020-06-07] MEDS ORDERED: Acetaminophen/Codeine 30-300mg Tablet PO PRN (09:20)
[2020-06-07] MEDS ORDERED: Promethazine 25 MG TAB PO PRN (09:20)
[2020-06-07] MEDS ORDERED: Fleet Enema 133 ML BOT PR PRN (09:20)
[2020-06-07] MEDS ORDERED: Acetaminophen 325 MG TAB PO PRN (09:20)
[2020-06-07] MEDS ORDERED: traMADol HCl 50 MG TAB PO PRN (09:20)
[2020-06-07] MEDS ORDERED: Mag-Al 1200 mg/1200 mg/30 ML UDCUP PO PRN (09:20)
[2020-06-07] MEDS ORDERED: Ondansetron PF 4 MG/2 ML Vial IVP PRN (09:20)
[2020-06-07] MEDS ORDERED: hydrALAZINE 20 MG/ML VIAL SLOW IVP PRN (09:24)
[2020-06-07] MEDS ORDERED: Phenylephrine 10 MG/ML VIAL ONE (09:59)
[2020-06-07] MEDS ORDERED: PHENYLEPHRINE-NS 100 MCG/ML 10 ML SYRINGE ONE (10:00)
[2020-06-07] MEDS ORDERED: EPHEDRINE 25 MG/5 ML SYRINGE ONE (10:00)
[2020-06-07] MEDS ORDERED: Lidocaine 1% PF 5 ML VIAL ONE (10:00)
[2020-06-07] MEDS ORDERED: Glycopyrrolate 0.2 MG/ML 5 ML SYRINGE ONE (10:00)
[2020-06-07] MEDS ORDERED: Rocuronium Bromide 10 MG/ML (10ML VIAL) ONE (10:00)
[2020-06-07] MEDS ORDERED: Dexamethasone 20 MG/5 ML VIAL ONE (10:00)
[2020-06-07] MEDS ORDERED: Ondansetron PF 4 MG/2 ML Vial ONE (10:00)
[2020-06-07] MEDS ORDERED: PROPOFOL 200 MG/20 ML VIAL ONE (10:00)
[2020-06-07] MEDS ORDERED: HYDROcodone/Acetaminophen 5/325 mg Tablet ONE (12:32)
--- NOTE | 2020-06-07 14:32 | OP ---
DATE OF PROCEDURE: 06/07/2020 LOCATION: OR 11. SPECIALTIES OPERATOR: Anuradha Salgado PA-C PREPROCEDURE DIAGNOSES: L5-S1 spondylolisthesis with L4-L5 disk extrusion and low back and right greater than left leg pain. POSTPROCEDURE DIAGNOSES: L5-S1 spondylolisthesis with L4-L5 disk extrusion and low back and right greater than left leg pain (L5 spondylolysis was identified intraoperatively as such given the fact that we were doing a right L5-S1 hemilaminotomy, foraminotomy and he had bilateral pars defects. Along with his spondylolisthesis, I opted to do an in situ fusion with local bone autograft obtained with same incision and allograft). PROCEDURES PERFORMED: 1. L4-L5 laminectomy, partial facetectomy, foraminotomies, right L4-L5 diskectomy. 2. Right L5-S1 hemilaminotomy, foraminotomy. 3. L5-S1 in situ fusion with local bone autograft obtained with same incision and allograft posterolaterally. 4. Use of operating microscope for microdissection. DESCRIPTION OF PROCEDURE: After informed consent was obtained from the patient, the patient was brought to the OR. Proper patient, pause, and identification were carried out. He was placed under excellent general endotracheal anesthesia and positioned prone on the OR table. All appropriate points were padded. We identified the L4-L5, L5-S1 segments, dorsal spines. Linear spencer was made over this area. This region was sterilely cleansed, prepared, and draped. Proper patient, pause, and identification were carried out. The wound was then opened with an exposure occurred with sharp, monopolar, and blunt dissection. The L4, L5, and S1 dorsal spines and lamina were exposed. He had bilateral L5 pars defects that were not as obvious on the preoperative MRI. As such, I opted to do L4-L5 laminectomy, partial facetectomy, and foraminotomy with right L5-S1 hemilaminotomy and foraminotomy. I also decided to promote or to prevent further instability by using local bone autograft obtained with same incision and allograft to lay into the posterolateral regions for in situ fusion at L5-S1. I brought the microscope in. The right L4-L5 diskectomy was performed as well with excellent decompression of common dural tube and nerve roots. Copious irrigation occurred throughout with maximized hemostasis. The wound was then closed in anatomic layers following sprinkling of vancomycin powder. The patient emerged from anesthesia. Job ID: [id number]
[2020-06-07] MEDS: tiZANidine HCl 4 MG TAB PO PRN (15:40)
[2020-06-07] MEDS ORDERED: metFORMIN 500 MG TAB PO SCH ×2 (17:00→19:15)
[2020-06-07] MEDS: Sodium Chloride 0.9% 1,000 ML IV SCH ×2 (17:23→20:55)
[2020-06-07] MEDS: CEFAZOLIN 2 GM in Premix Bag 1 BAG IVPB SCH ×2 (17:24→23:47)
[2020-06-07] MEDS: Labetalol HCl 100 MG/20 ML VIAL SLOW IVP PRN ×2 (17:24→23:44)
[2020-06-07] MEDS: HYDROcodone/Acetaminophen 7.5/325 mg Tablet PO PRN ×2 (18:37→22:34)
[2020-06-07] MEDS: Morphine 2 MG/ML VIAL SLOW IVP PRN ×3 (18:37→23:44)
[2020-06-08] MEDS: Morphine 2 MG/ML VIAL SLOW IVP PRN ×4 (02:39→21:16)
[2020-06-08] MEDS: Labetalol HCl 100 MG/20 ML VIAL SLOW IVP PRN ×2 (05:34→21:16)
[2020-06-08] MEDS: Glimepiride 4 MG TAB PO SCH (08:14)
[2020-06-08] MEDS: Hydrochlorothiazide 25 MG TAB PO SCH (08:14)
[2020-06-08] MEDS: Folic Acid 1 MG TAB PO SCH (08:14)
[2020-06-08] MEDS: tiZANidine HCl 4 MG TAB PO PRN (08:14)
[2020-06-08] MEDS: Lisinopril 20 MG TAB PO SCH (08:14)
[2020-06-08] MEDS: Amlodipine 10 MG TAB PO SCH (08:15)
[2020-06-08] MEDS: HYDROcodone/Acetaminophen 7.5/325 mg Tablet PO PRN ×3 (08:15→18:27)
[2020-06-08] MEDS ORDERED: metFORMIN 500 MG TAB PO SCH ×2 (08:30→09:00)
[2020-06-08] MEDS ORDERED: Amlodipine 10 MG TAB PO SCH (09:00)
--- NOTE | 2020-06-08 10:51 | PRG ---
DATE OF SERVICE: 06/08/2020 SUBJECTIVE: Biju Lutz is doing well postoperative day #1 from lumbar decompression and in-situ fusion for L5 spondylolysis and spondylolisthesis. His leg pain has resolved. He has incisional pain. He may need 1 more day in the hospital, given his incisional pain, but otherwise he is neurologically intact. Job ID: [id number]
[2020-06-08] MEDS: Fluticasone Propionate Nasal Spray 16 gm Bottle NASAL SCH (12:20)
[2020-06-08] MEDS: Dapagliflozin Propanediol 5 MG TAB PO SCH (12:20)
[2020-06-08] MEDS: Sodium Chloride 0.9% 1,000 ML IV SCH (15:54)
[2020-06-08] MEDS: metFORMIN 500 MG TAB PO SCH (17:36)
[2020-06-08] MEDS ORDERED: Atorvastatin Calcium 20 MG TAB PO SCH (21:00)
[2020-06-09] MEDS: HYDROcodone/Acetaminophen 7.5/325 mg Tablet PO PRN ×4 (00:39→16:10)
[2020-06-09] MEDS: Sodium Chloride 0.9% 1,000 ML IV SCH ×2 (02:22→14:09)
[2020-06-09] MEDS: Labetalol HCl 100 MG/20 ML VIAL SLOW IVP PRN (05:06)
--- NOTE | 2020-06-09 08:18 | DIS ---
DATE OF ADMISSION: 06/09/2020 DATE OF DISCHARGE: 06/09/2020 Mr. Lutz is a 65-year-old man, admitted to [facility] by Dr. Frandy Lewis on June 07, 2020. ADMISSION DIAGNOSIS: Status post lumbar decompression and fusion. DISCHARGE DIAGNOSIS: Status post lumbar decompression and fusion. HOSPITAL COURSE: Mr. Lutz's hospital stay was minimally complicated by increased postoperative pain issues requiring modestly more aggressive pain management control using IV morphine. Overall, his pain continued to decline and he mobilized early and often. He ultimately was discharged on the afternoon of June 09, 2020, in good condition with outpatient followup planned in 2-1/2 weeks. Job ID: [id number]
[2020-06-09] MEDS ORDERED: Empagliflozin 25 MG TAB PO SCH (09:00)
[2020-06-09] MEDS: metFORMIN 500 MG TAB PO SCH ×2 (09:41→16:09)
[2020-06-09] MEDS: Hydrochlorothiazide 25 MG TAB PO SCH (09:41)
[2020-06-09] MEDS: Lisinopril 20 MG TAB PO SCH (09:41)
[2020-06-09] MEDS: Glimepiride 4 MG TAB PO SCH (09:41)
[2020-06-09] MEDS: Folic Acid 1 MG TAB PO SCH (09:42)
[2020-06-09] MEDS: Amlodipine 10 MG TAB PO SCH (09:43)
[2020-06-09] MEDS: Fluticasone Propionate Nasal Spray 16 gm Bottle NASAL SCH (09:56)
[2020-06-09] MEDS: Dapagliflozin Propanediol 5 MG TAB PO SCH (09:58)
[2020-06-09] MEDS: tiZANidine HCl 4 MG TAB PO PRN (12:12)
[2020-06-09 15:51] VITALS: BP 128/83; TEMP 97.7
== END 2020-06-09 17:55 | disposition home or self-care (01) | DRG 460 ==
LOC: SDC 07:05 → SURG B 09:25 → SDC 06-09 06:51
PROVIDERS: ADMIT Surgery; ATTEND Surgery
PROC: 0SG3071 Fusion of Lumbosacral Joint with Autologous Tissue Substitute, Posterior Approach, Posterior Column, Open Approach (ICD-10-PCS; principal; 2020-06-07)
PROC: 0SB20ZZ Excision of Lumbar Vertebral Disc, Open Approach (ICD-10-PCS; 2020-06-07)
PROC: 01NB0ZZ Release Lumbar Nerve, Open Approach (ICD-10-PCS; 2020-06-07)
PROC: 01NR0ZZ Release Sacral Nerve, Open Approach (ICD-10-PCS; 2020-06-07)
PROC: 00NY0ZZ Release Lumbar Spinal Cord, Open Approach (ICD-10-PCS; 2020-06-07)
DX: M51.26 Other intervertebral disc displacement, lumbar region (principal); M48.062 Spinal stenosis, lumbar region with neurogenic claudication; M43.07 Spondylolysis, lumbosacral region; G89.18 Other acute postprocedural pain; M47.816 Spondylosis without myelopathy or radiculopathy, lumbar region; Z88.8 Allergy status to other drugs, medicaments and biological substances; Z79.899 Other long term (current) drug therapy; Z85.810 Personal history of malignant neoplasm of tongue
CPT/HCPCS: 36416; 76000; C1713; J0690; J1071; J1100; J2270; J2370; J2405; J2704; J3010; J3370

== ENCOUNTER 2021-07-11 23:52 | Emergency (ER) | payer MEDICARE, OTHER ==
[2021-07-12 00:54] LABS: #Basophils 0.1 thou/uL (0.0-0.2); #Eosinphils 0.1 thou/uL (0.0-0.7); #Lymphocytes 0.7 thou/uL (1.20-3.40); #Monocytes 0.6 thou/uL (0.11-0.59); #Neutrophils 9.1 thou/uL (1.40-6.50); %Basophils 1.2 % (0.0-1.0); %Eosinophils 1.3 % (0.0-10.0); %Lymphocytes 6.8 % (21.0-51.0); %Monocytes 5.7 % (0.0-10.0); Hemoglobin 18.6 g/dL (14.0-18.0); Mean Corpuscular HGB CONC 34.3 g/dL (32.0-36.0); Mean Corpuscular Hemoglobin 33.8 pg (27.0-31.0); Mean Corpuscular Volume 98.5 fL (78.0-98.0); Platelet Count 267 thou/uL (130-400); RBC Distribution Width 12.3 % (11.5-14.5); White Blood Cell (WBC) Count 10.7 thou/uL (4.8-10.8)
[2021-07-12] MEDS ORDERED: hydrOXYzine 25 MG TAB ONE (00:54)
[2021-07-12 01:21] LABS: ALT (SGPT) 37 U/L (8-55); AST (SGOT) 31 U/L (5-34); Albumin 4.5 g/dL (3.4-4.8); Alkaline Phosphatase 43 U/L (40-110); Anion Gap 20 mmol/L (10-20); BUN (Urea Nitrogen) 35 mg/dL (8.4-25.7); Bilirubin, Total 0.7 mg/dL (0.2-1.2); Calc. Creatinine Clearance 0 mL/min (70-130); Calcium 10.3 mg/dL (7.8-10.44); Carbon Dioxide 18 mmol/L (23-31); Chloride 100 mmol/L (98-107); Globulin 3.6 g/dL (2.4-3.5); Glucose 154 mg/dL (80-115); Potassium 4.4 mmol/L (3.5-5.1); Protein, Total 8.1 g/dL (5.8-8.1); Sodium 134 mmol/L (136-145)
== END 2021-07-12 02:08 | disposition home or self-care (01) ==
LOC: ERS 23:52
DX: I10 Essential (primary) hypertension (principal); F41.9 Anxiety disorder, unspecified; E11.9 Type 2 diabetes mellitus without complications; Z79.82 Long term (current) use of aspirin; Z79.84 Long term (current) use of oral hypoglycemic drugs; Z79.899 Other long term (current) drug therapy
CPT/HCPCS: 80053; 84484; 85025; 93005

== ENCOUNTER 2021-10-22 08:54 | Outpatient (CLI) | payer MEDICARE, OTHER | END 2021-10-22 08:55 | disposition home or self-care (01) | LOC: BICULT 08:54 | PROVIDERS: ATTEND Internal Medicine Nephrology | DX: I13.10 Hypertensive heart and chronic kidney disease without heart failure, with stage 1 through stage 4 chronic kidney disease, or unspecified chronic kidney disease (principal); E11.22 Type 2 diabetes mellitus with diabetic chronic kidney disease; N18.9 Chronic kidney disease, unspecified; C02.9 Malignant neoplasm of tongue, unspecified; N40.0 Benign prostatic hyperplasia without lower urinary tract symptoms; I25.10 Atherosclerotic heart disease of native coronary artery without angina pectoris; R80.9 Proteinuria, unspecified | CPT/HCPCS: 76770; 93975 ==